=== PATIENT | male | born 1990 | race Caucasian/White ===

== ENCOUNTER 2022-12-05 22:31 | Emergency (ER) | payer OTHER ==
[~2022-12-05] VITALS: Ht 188 cm; Wt 109.0 kg
[2022-12-05 23:05] VITALS: BP 135/97
[2022-12-05] MEDS ORDERED: ASPIRIN 325MG EC TABLET PO ONE (23:15)
[2022-12-05 23:43] LABS: CHLORIDE 105 mEq/L (98-107)
[2022-12-05 23:46] LABS: BASOPHILS % 0.3 % (0.0-2.0); HEMATOCRIT. 45.1 % (42.0-52.0); HEMOGLOBIN. 15.8 g/dL (14.0-18.0); LYMPHOCYTES % 21.8 % (20.0-50.0); MEAN CORPUSCULAR VOLUME 85.6 fL (80.0-94.0); MEAN PLATELET VOLUME 8.4 fl (7.4-10.4); MONOCYTES % 8.3 % (2.0-8.0); NEUTROPHILS % 68.6 % (40.0-76.0); PLATELET 204 x1000/uL (130-400); RED BLOOD CELL COUNT 5.27 mill/uL (4.7-6.1); RED CELL DISTRIBUTION WIDTH 13.8 % (11.6-14.6)
[2022-12-05 23:49] LABS: INR 0.9; PARTIAL THROMBOPLASTIN TIME 31.9 sec (23.4-31.0); PROTHROMBIN TIME 10.2 sec (9.6-11.0)
[2022-12-06] MEDS ORDERED: MECL-217 MT (04:03)
== END 2022-12-06 04:54 | disposition home or self-care (01) ==
LOC: ER 22:31
DX: R42 Dizziness and giddiness (principal); F32.9 Major depressive disorder, single episode, unspecified; K21.9 Gastro-esophageal reflux disease without esophagitis
CPT/HCPCS: 36415; 71045; 80053; 83880; 84484; 85025; 93005; 99285

== ENCOUNTER 2024-02-18 16:51 | Emergency (ER) | payer SELFPAY ==
[~2024-02-18] VITALS: Ht 182.9 cm; Wt 100.0 kg
[~2024-02-18 16:51] MED LIST: MECL-217 MT
[2024-02-18 16:56] VITALS: BP 113/66; PULSE 82; RESP 16; TEMP 98.4; O2SAT 98
== END 2024-02-18 17:33 | disposition left against medical advice (07) ==
LOC: ER 16:51
DX: R45.851 Suicidal ideations (principal); F32.A Depression, unspecified; K21.9 Gastro-esophageal reflux disease without esophagitis
CPT/HCPCS: 99283